=== PATIENT | female | born 1960 | race Hispanic/Latino ===

== ENCOUNTER → 2024-07-02 10:47 | Outpatient (REF) | payer OTHER, SELFPAY | LOC: HWRAD 10:47 | PROVIDERS: ATTENDING PHYSICIAN Family Medicine | DX: M79.609 Pain in unspecified limb (principal) | CPT/HCPCS: 76882 ==

== ENCOUNTER → 2024-09-30 13:26 | Outpatient (REF) | payer OTHER, SELFPAY | LOC: HWRAD 13:26 | PROVIDERS: ATTENDING PHYSICIAN Internal Medicine Rheumatology; FAMILY PHYSICIAN Family Medicine | DX: M17.10 Unilateral primary osteoarthritis, unspecified knee (principal); M25.551 Pain in right hip; M25.552 Pain in left hip; R76.8 Other specified abnormal immunological findings in serum | CPT/HCPCS: 72110; 73523 ==

== ENCOUNTER → 2025-02-10 11:57 | Outpatient (REF) | payer OTHER, SELFPAY | LOC: HWRAD 11:57 | PROVIDERS: ATTENDING PHYSICIAN Family Medicine | DX: R05.3 Chronic cough (principal) | CPT/HCPCS: 71046 ==

== ENCOUNTER → 2025-03-12 06:56 | Outpatient (REF) | payer OTHER, SELFPAY | LOC: HWWDC 06:56 | PROVIDERS: ATTENDING PHYSICIAN Obstetrics & Gynecology Gynecology; FAMILY PHYSICIAN Family Medicine | DX: Z12.31 Encounter for screening mammogram for malignant neoplasm of breast (principal) | CPT/HCPCS: 77063; 77067 ==